=== PATIENT | male | born 1980 | race Caucasian/White ===

== ENCOUNTER 2016-11-23 03:52 | Emergency (ER) | payer OTHER ==
[2016-11-23] MEDS ORDERED: ACETAMINOPHEN 325 MG TABLET PO ONE (06:43)
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
[2016-11-23] MEDS ORDERED: TETRACAINE HCL 0.5% OPH SOLN 2 ML ONE (07:41)
[2016-11-23 08:10] VITALS: BP 132/77
== END 2016-11-23 08:22 | disposition home or self-care (01) ==
LOC: ER 03:52
DX: S02.82XA Fracture of other specified skull and facial bones, left side, initial encounter for closed fracture (principal); S09.93XA Unspecified injury of face, initial encounter; R22.0 Localized swelling, mass and lump, head; Y08.89XA Assault by other specified means, initial encounter
CPT/HCPCS: 70450; 70486; 72125; 99284